=== PATIENT | female | born 1975 ===

== ENCOUNTER 2019-10-28 17:49 | Emergency (ER) | payer SELFPAY ==
[2019-10-28] MEDS ORDERED: HYDROcodone/Acetaminophen 10/325 mg Tablet ONE (18:41)
== END 2019-10-28 18:50 | disposition home or self-care (01) ==
LOC: ERS 17:49
DX: S70.01XA Contusion of right hip, initial encounter (principal); W18.30XA Fall on same level, unspecified, initial encounter
CPT/HCPCS: 99283